=== PATIENT | female | born 1960 | race Caucasian/White ===

== ENCOUNTER 2016-12-19 15:16 | Inpatient (IN) | payer OTHER ==
[~2016-12-19] VITALS: Ht 157.5 cm; Wt 74.8 kg
[2016-12-19] MEDS ORDERED: SODIUM CHLORIDE 0.9% 1000ML 1,000 ML IV STA (15:34)
--- NOTE | 2016-12-19 15:39 | EMERGENCY ROOM VISIT NOTE ---
History First contact with patient: 15:25 Chief Complaint: RECTAL BLEEDING Stated Complaint: RECTAL BLEEDING Nursing Triage Summary: pt states she had a colonoscopy tuesday and c/o bloody stools and nausea today. History of Present Illness The patient is a 56 year old female who presents to the Emergency Room via private vehicle with complaints of "rectal bleeding". The patient states that she had a colonoscopy performed on Tuesday, at [facility] by Dr. Rivera. She states that this was an uneventful procedure, and felt well after. She states that she is held bowel movement since the event, with only minimal amount of blood. When she woke this morning, she had a bowel movement with bright red blood, but was liquid in nature. She denies any pain. She states since that time she's had 6 total bowel movements all of which have been prescribed blood. She also notes that around 1 PM she became nauseous. She furnishes paperwork which states that she had a 20 mm polyp, 35 cm proximal to the anus that was resected with a hot snare. There was also a 4 mm polyp, at the hepatic flexure which was resected with a cold snare. Both were sent for further evaluation. She denies any pain. She denies any rectal pain. Review of Systems A complete 10-point Review of Systems was discussed with the patient, with pertinent positives and negatives listed in the History of Present Illness. All remaining Review of Systems questions can be considered negative unless otherwise specified. Past Medical/Surgical History Medical Problems: (1) Rectal bleeding Polyps, colonoscopy Family History No pertinent. Social History Smoking Status: Current Every Day Smoker Patient lives locally with family. Current/Historical Medications Scheduled Ascorbic Acid (Vitamin C), 1 TAB PO QAM Bupropion (Wellbutrin-Xl), 300 MG PO QAM Fexofenadine-Pseudoephedrine (Lucia-D 12 Hour Allergy), 1 TAB PO QAM Physical Exam Vital Signs Date Time Temp Pulse Resp B/P (MAP) Pulse Ox O2 Delivery O2 Flow Rate FiO2 12/19/16 18:40 73 18 117/58 12/19/16 16:48 80 18 118/69 12/19/16 16:10 91 12/19/16 15:52 94 Room Air 12/19/16 15:21 36.5 98 18 106/66 93 Room Air Physical Exam VITAL SIGNS - Vital signs and nursing notes were reviewed. Patient is afebrile , normotensive, non-tachycardic and is saturating on room air 92%. GENERAL -56-year-old female appearing her stated age who is in no acute distress. Communicates well with provider and answers questions appropriately. SKIN - Without rashes. No petechial rash. HEAD - NC/AT. LUNGS - Chest wall symmetric without accessory muscle use, intercostals retractions, or central cyanosis. Normal vesicular breath sounds CTA B/L. No wheezes, rales, or rhonchi appreciated. CARDIAC - RRR with S1/S2. No murmur, rubs, or gallops appreciated. ABDOMEN - Abdominal contour without pulsations or visible masses. BS normoactive all four quadrants. No tenderness, palpable masses, hepatosplenomegaly, or ascites noted. Medical Decision & Procedures ER Provider Diagnostic Interpretation: CHEST ONE VIEW PORTABLE CLINICAL HISTORY: Colonoscopy Tuesday, bright red blood. Pain COMPARISON STUDY: No previous studies for comparison. FINDINGS: The bones soft tissues and hemidiaphragms are normal. The cardiomediastinal silhouette is normal. The lungs are clear. The pulmonary vasculature is normal. IMPRESSION: Negative chest. The above report was generated using voice recognition software. It may contain grammatical, syntax or spelling errors. Electronically signed by: Varghese Barnett M.D. 12/19/2016 3:53 PM Dictated Date/Time: 12/19/2016 3:53 PM ABD/PELVIS IV AND ORAL CONT CT DOSE: 355.41 mGy.cm HISTORY: Pain Colonoscopy on Tuesday, rectal bleeding. TECHNIQUE: Multiaxial CT images of the abdomen and pelvis were performed following the use of intravenous and oral contrast. A dose lowering technique was utilized adhering to the principles of ALARA. COMPARISON STUDY: None. FINDINGS: Lung bases are considered clear. Mild fatty replacement of the liver. Several small gallstones within the gallbladder lumen. Pancreas is unremarkable. Mild cortical scarring of the kidneys. Several small subcentimeter renal cortical cysts. Mild hyperplastic change of the adrenals. Nonobstructive bowel pattern. Normal appendix. No evidence for free air or pneumatosis. Bladder is midline. Probable calcifications of a fibroid uterus. IMPRESSION: 1. Several small gallstones. 2. Several small renal cysts. 3. Fibroid uterus. 4. Nonobstructive unremarkable bowel pattern. The above report was generated using voice recognition software. It may contain grammatical, syntax or spelling errors. Electronically signed by: Varghese Barnett M.D. 12/19/2016 6:21 PM Dictated Date/Time: 12/19/2016 6:19 PM Laboratory Results 12/19/16 15:50 Red Blood Count 4.62, Mean Corpuscular Volume 93.7, Mean Corpuscular Hemoglobin 31.0, Mean Corpuscular Hemoglobin Concent 33.0, Mean Platelet Volume 11.5, Neutrophils (%) (Auto) 88.3, Lymphocytes (%) (Auto) 5.5, Monocytes (%) (Auto) 5.6, Eosinophils (%) (Auto) 0.1, Basophils (%) (Auto) 0.2, Neutrophils # (Auto) 15.02, Lymphocytes # (Auto) 0.93, Monocytes # (Auto) 0.96, Eosinophils # (Auto) 0.02, Basophils # (Auto) 0.04 12/19/16 15:50 Test 12/19/16 15:50 White Blood Count 17.02 K/uL (4.8-10.8) Red Blood Count 4.62 M/uL (4.2-5.4) Hemoglobin 14.3 g/dL (12.0-16.0) Hematocrit 43.3 % (37-47) Mean Corpuscular Volume 93.7 fL (80-100) Mean Corpuscular Hemoglobin 31.0 pg (25-34) Mean Corpuscular Hemoglobin Concent 33.0 g/dl (32-36) Platelet Count 336 K/uL (130-400) Mean Platelet Volume 11.5 fL (7.4-10.4) Neutrophils (%) (Auto) 88.3 % Lymphocytes (%) (Auto) 5.5 % Monocytes (%) (Auto) 5.6 % Eosinophils (%) (Auto) 0.1 % Basophils (%) (Auto) 0.2 % Neutrophils # (Auto) 15.02 K/uL (1.4-6.5) Lymphocytes # (Auto) 0.93 K/uL (1.2-3.4) Monocytes # (Auto) 0.96 K/uL (0.11-0.59) Eosinophils # (Auto) 0.02 K/uL (0-0.5) Basophils # (Auto) 0.04 K/uL (0-0.2) RDW Standard Deviation 46.9 fL (36.4-46.3) RDW Coefficient of Variation 13.7 % (11.5-14.5) Immature Granulocyte % (Auto) 0.3 % Immature Granulocyte # (Auto) 0.05 K/uL (0.00-0.02) Prothrombin Time 10.9 SECONDS (9.0-12.0) Prothromb Time International Ratio 1.0 (0.9-1.1) Activated Partial Thromboplast Time 27.3 SECONDS (21.0-31.0) Partial Thromboplastin Ratio 1.1 Anion Gap 10.0 mmol/L (3-11) Est Creatinine Clear Calc Drug Dose 57.7 ml/min Estimated GFR () 73.5 Estimated GFR (Non- 63.4 BUN/Creatinine Ratio 14.0 (10-20) Calcium Level 9.6 mg/dl (8.5-10.1) Magnesium Level 1.7 mg/dl (1.8-2.4) Total Bilirubin 0.6 mg/dl (0.2-1) Aspartate Amino Transf (AST/SGOT) 17 U/L (15-37) Alanine Aminotransferase (ALT/SGPT) 17 U/L (12-78) Alkaline Phosphatase 64 U/L (45-117) Total Protein 7.1 gm/dl (6.4-8.2) Albumin 3.3 gm/dl (3.4-5.0) Globulin 3.8 gm/dl (2.5-4.0) Albumin/Globulin Ratio 0.9 (0.9-2) Medications Administered Medications (Trade) Dose Ordered Sig/Karo Route Start Time Stop Time Status Last Admin Dose Admin Sodium Chloride 1,000 ml @ 999 mls/hr Q1H1M STAT IV 12/19/16 15:34 12/19/16 16:34 DC 12/19/16 15:54 999 MLS/HR Nicotine (Nicoderm Cq 14MG Patch) 1 patch 2007 ONCE TD 12/19/16 20:08 12/19/16 20:23 DC 12/19/16 21:05 1 PATCH Medical Decision Patient was seen and evaluated as above. After obtaining a thorough history and physical examination, IV access was initiated, and the above workup was performed. Patient presents was today with painless rectal bleeding with bowel movements. She had a colonoscopy on Tuesday. CBC reveals is a ptosis at 17.02. Hemoglobin at 14.3. Coag unremarkable. CMP unremarkable for emergent process. Magnesium slightly low at 1.7. Benefits versus risk of obtaining a CT scan was discussed, and the decision was made to scan. No evidence of perforation. Results as above. I discussed the case with my attending, and subsequently the on-call GI doctor, Dr. Bates. He stated that he had spoken with the [facility] regarding the case, and recommended MiraLAX bowel prep, admission for potential colonoscopy tomorrow. I do believe this is reasonable. Patient was educated upon findings. I did discuss the case with [facility], Dr. Sharma. Please refer to further documentation regarding the patient's stay. In evaluation treatment this patient the following differential diagnoses were entertained: Hemorrhaging resection site, abscess, perforation, among others. Impression Primary Impression: Rectal bleeding Departure Information Dispostion Admitted as an inpatient Condition FAIR Referrals Francisco Osorio M.D. (PCP) Patient Instructions My [facility]
--- NOTE | 2016-12-19 15:54 | DIAGNOSTIC IMAGING REPORT ---
CHEST ONE VIEW PORTABLE CLINICAL HISTORY: Colonoscopy Tuesday, bright red blood. Pain COMPARISON STUDY: No previous studies for comparison. FINDINGS: The bones soft tissues and hemidiaphragms are normal. The cardiomediastinal silhouette is normal. The lungs are clear. The pulmonary vasculature is normal. IMPRESSION: Negative chest. The above report was generated using voice recognition software. It may contain grammatical, syntax or spelling errors. Electronically signed by: Varghese Barnett M.D. 12/19/2016 3:53 PM Dictated Date/Time: 12/19/2016 3:53 PM
[2016-12-19 16:07] LABS: BASO % 0.2 %; BASO ABS # 0.04 K/uL (0-0.2); COMPLETE YES; EOS % 0.1 %; HEMATOCRIT 43.3 % (37-47); IG% 0.3 %; LYMPH % 5.5 %; LYMPH ABS # 0.93 K/uL (1.2-3.4); MEAN CELL VOLUME 93.7 fL (80-100); MEAN PLATELET VOLUME 11.5 fL (7.4-10.4); MONO % 5.6 %; NEUT % 88.3 %; PLATELET COUNT 336 K/uL (130-400); RED BLOOD COUNT 4.62 M/uL (4.2-5.4); WHITE BLOOD COUNT 17.02 K/uL (4.8-10.8)
[2016-12-19] MEDS ORDERED: BUPRTAB51 PO (16:11)
[2016-12-19] MEDS ORDERED: FEXO5TAB2 PO (16:11)
[2016-12-19] MEDS ORDERED: ASCO10003 PO (16:13)
[2016-12-19 16:18] LABS: PARTIAL THROMBOPLASTIN RATIO 1.1; PROTHROMBIN TIME (PATIENT) 10.9 SECONDS (9.0-12.0)
[2016-12-19 16:23] LABS: CALCIUM 9.6 mg/dl (8.5-10.1); MAGNESIUM 1.7 mg/dl (1.8-2.4); POTASSIUM 4.1 mmol/L (3.5-5.1)
[2016-12-19 16:26] LABS: ALB/GLOB RATIO 0.9 (0.9-2)
[2016-12-19] MEDS ORDERED: OPTIRAY 320 IV PRN (18:15)
--- NOTE | 2016-12-19 18:23 | DIAGNOSTIC IMAGING REPORT ---
ABD/PELVIS IV AND ORAL CONT CT DOSE: 355.41 mGy.cm HISTORY: Pain Colonoscopy on Tuesday, rectal bleeding. TECHNIQUE: Multiaxial CT images of the abdomen and pelvis were performed following the use of intravenous and oral contrast. A dose lowering technique was utilized adhering to the principles of ALARA. COMPARISON STUDY: None. FINDINGS: Lung bases are considered clear. Mild fatty replacement of the liver. Several small gallstones within the gallbladder lumen. Pancreas is unremarkable. Mild cortical scarring of the kidneys. Several small subcentimeter renal cortical cysts. Mild hyperplastic change of the adrenals. Nonobstructive bowel pattern. Normal appendix. No evidence for free air or pneumatosis. Bladder is midline. Probable calcifications of a fibroid uterus. IMPRESSION: 1. Several small gallstones. 2. Several small renal cysts. 3. Fibroid uterus. 4. Nonobstructive unremarkable bowel pattern. The above report was generated using voice recognition software. It may contain grammatical, syntax or spelling errors. Electronically signed by: Varghese Barnett M.D. 12/19/2016 6:21 PM Dictated Date/Time: 12/19/2016 6:19 PM
[2016-12-19] MEDS ORDERED: NICOTINE 14 MG/24 HR TDSY TD ONE (20:08)
[2016-12-19] MEDS ORDERED: IV FLUIDS COMPLETED PRN (20:30)
--- NOTE | 2016-12-19 20:30 | History and Physical ---
History & Physical Date & Time of Service: Dec 19, 2016 at 20:20 Chief Complaint: Rectal Bleeding Primary Care Physician: Francisco Osorio M.D. History of Present Illness Source: patient, family 56 year old female with history of Smoking, Asthma, Alcoholism, Depression presenting with rectal bleeding. Follows with Dr. Osorio for PCP and Dr. Rivera for GI. Patient underwent screening colonoscopy last Tuesday, with 2 polyps removed. She was doing fine until this morning when she started to notice blood mixed with her stools- fills the bowl each time. No pain with BM. Around 9 times today. No abdominal pain, has occasional nausea. No chest pain, dyspnea, palpitations, dizziness. She called GI and was advised by Dr. Bates to proceed to the ER, and a colonoscopy will be done in AM. Patient arrived at the ER with stable VS. Hg 14. CT abdomen: (+) gallstones, fibroid uterus. On exam, patient seen resting in bed, comfortable. States she feels ok overall. Had 2 episodes of hematochezia. No other active symptoms. Family History Blood Disorder- Mother; Cancer- Father; Heart Disease- Mother Social History Smoking Status: Current Every Day Smoker Smokeless Tobacco Use: No Alcohol Use: none Drug Use: none Marital Status: Housing status: lives with family Multi-Drug Resistant Organisms History of MDRO: No Allergies Coded Allergies: Penicillins (Verified Allergy, Unknown, OTHER, 12/19/16) UNKNOWN Home Medications Scheduled Ascorbic Acid (Vitamin C), 1 TAB PO QAM Bupropion (Wellbutrin-Xl), 300 MG PO QAM Fexofenadine-Pseudoephedrine (Lucia-D 12 Hour Allergy), 1 TAB PO QAM Review of Systems Constitutional- no fever; no weight loss Eyes- no acute visual changes ENT- no sinus drainage; no pharyngitis Pulmonary- no cough, no wheezing, no shortness of breath Cardiac- no chest pain, no palpitations, no orthopnea, no dependent edema GI- (+) as noted above - no dysuria, no hematuria Musculoskeletal- no arthralgias, no myalgias Derm- no rashes, no new skin lesions, no changing skin lesions Hematologic- no unusual bruising, no unusual bleeding Lymphatics- no adenopathy Endocrine- no polyuria or polydipsia; no heat or cold intolerance Neuro- no headaches, no focal neurologic symptoms Psych- no anxiety, no depression Physical Exam Vital Signs Date Time Temp Pulse Resp B/P (MAP) Pulse Ox O2 Delivery O2 Flow Rate FiO2 12/19/16 18:40 73 18 117/58 12/19/16 16:48 80 18 118/69 12/19/16 16:10 91 12/19/16 15:52 94 Room Air 12/19/16 15:21 36.5 98 18 106/66 93 Room Air General Appearance: WD/WN, no apparent distress Head: normocephalic, atraumatic Eyes: normal inspection, PERRL, sclerae normal ENT: normal ENT inspection, hearing grossly normal, pharynx normal Neck: supple, no adenopathy, thyroid normal, no JVD, no carotid bruits Respiratory/Chest: chest non-tender, lungs clear, normal breath sounds, no respiratory distress, no accessory muscle use Cardiovascular: regular rate, rhythm, no edema, no JVD, no murmur Abdomen/GI: normal bowel sounds, non tender, soft Back: normal inspection, no CVA tenderness Extremities/Musculoskelatal: normal inspection, no calf tenderness, no pedal edema, normal range of motion 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, no motor/sensory deficits, alert, normal mood/affect, oriented x 3 Skin: normal color, warm/dry, no rash Lymphatic: no adenopathy Diagnostics Laboratory Results Results Past 24 Hours Test 12/19/16 15:50 Range/Units White Blood Count 17.02 4.8-10.8 K/uL Red Blood Count 4.62 4.2-5.4 M/uL Hemoglobin 14.3 12.0-16.0 g/dL Hematocrit 43.3 37-47 % Mean Corpuscular Volume 93.7 80-100 fL Mean Corpuscular Hemoglobin 31.0 25-34 pg Mean Corpuscular Hemoglobin Concent 33.0 32-36 g/dl Platelet Count 336 130-400 K/uL Mean Platelet Volume 11.5 7.4-10.4 fL Neutrophils (%) (Auto) 88.3 % Lymphocytes (%) (Auto) 5.5 % Monocytes (%) (Auto) 5.6 % Eosinophils (%) (Auto) 0.1 % Basophils (%) (Auto) 0.2 % Neutrophils # (Auto) 15.02 1.4-6.5 K/uL Lymphocytes # (Auto) 0.93 1.2-3.4 K/uL Monocytes # (Auto) 0.96 0.11-0.59 K/uL Eosinophils # (Auto) 0.02 0-0.5 K/uL Basophils # (Auto) 0.04 0-0.2 K/uL RDW Standard Deviation 46.9 36.4-46.3 fL RDW Coefficient of Variation 13.7 11.5-14.5 % Immature Granulocyte % (Auto) 0.3 % Immature Granulocyte # (Auto) 0.05 0.00-0.02 K/uL Prothrombin Time 10.9 9.0-12.0 SECONDS Prothromb Time International Ratio 1.0 0.9-1.1 Activated Partial Thromboplast Time 27.3 21.0-31.0 SECONDS Partial Thromboplastin Ratio 1.1 Sodium Level 137 136-145 mmol/L Potassium Level 4.1 3.5-5.1 mmol/L Chloride Level 100 98-107 mmol/L Carbon Dioxide Level 27 21-32 mmol/L Anion Gap 10.0 3-11 mmol/L Blood Urea Nitrogen 14 7-18 mg/dl Creatinine 1.00 0.60-1.20 mg/dl Est Creatinine Clear Calc Drug Dose 57.7 ml/min Estimated GFR () 73.5 Estimated GFR (Non- 63.4 BUN/Creatinine Ratio 14.0 10-20 Random Glucose 145 70-99 mg/dl Calcium Level 9.6 8.5-10.1 mg/dl Magnesium Level 1.7 1.8-2.4 mg/dl Total Bilirubin 0.6 0.2-1 mg/dl Aspartate Amino Transf (AST/SGOT) 17 15-37 U/L Alanine Aminotransferase (ALT/SGPT) 17 12-78 U/L Alkaline Phosphatase 64 45-117 U/L Total Protein 7.1 6.4-8.2 gm/dl Albumin 3.3 3.4-5.0 gm/dl Globulin 3.8 2.5-4.0 gm/dl Albumin/Globulin Ratio 0.9 0.9-2 Diagnostic Radiology ABD/PELVIS IV AND ORAL CONT CT DOSE: 355.41 mGy.cm HISTORY: Pain Colonoscopy on Tuesday, rectal bleeding. TECHNIQUE: Multiaxial CT images of the abdomen and pelvis were performed following the use of intravenous and oral contrast. A dose lowering technique was utilized adhering to the principles of ALARA. COMPARISON STUDY: None. FINDINGS: Lung bases are considered clear. Mild fatty replacement of the liver. Several small gallstones within the gallbladder lumen. Pancreas is unremarkable. Mild cortical scarring of the kidneys. Several small subcentimeter renal cortical cysts. Mild hyperplastic change of the adrenals. Nonobstructive bowel pattern. Normal appendix. No evidence for free air or pneumatosis. Bladder is midline. Probable calcifications of a fibroid uterus. IMPRESSION: 1. Several small gallstones. 2. Several small renal cysts. 3. Fibroid uterus. 4. Nonobstructive unremarkable bowel pattern. EKG sinus rhythm, normal HR, no signs of ischemia/infarct Impression Assessment and Plan 56 year old female with history of Smoking, Asthma, Alcoholism, Depression presenting with rectal bleeding. RECTAL BLEEDING RECENT COLONOSCOPY, WITH POLYPECTOMY 12/17/16 - discussed with Dr. Bates - plan for colonoscopy in AM - NPO post midnight Miralax prep IV fluids - Hg 14 H&H q6h SMOKER - Nicotine patch ALCOHOLISM - last drink 2 months ago DEPRESSION - Welbutrin ASTHMA - stable DVT prophylaxis - SCDs Full Code Disposition pending anticipate d/c home when medically stable VTE Prophylaxis VTE Risk Assessment Done? Y/N: Yes Risk Level: Low Given or contraindicated: SCD's
[2016-12-19] MEDS ORDERED: ONDANSETRON INJ 2 MG/ML 2 ML VIAL IV PRN (20:45)
[2016-12-19] MEDS ORDERED: ACETAMINOPHEN 325 MG TAB PO PRN (20:45)
[2016-12-19 21:11] VITALS: BP 110/63; PULSE 84; TEMP 36.8; O2SAT 94; Ht 157.5 cm; Wt 74.8 kg
[2016-12-19 21:12] LABS: HEMATOCRIT 36.2 % (37-47)
[2016-12-19] MEDS: D5W AND NSS 1,000 ML IV SCH (21:30)
[2016-12-19] MEDS: POLYETHYLENE (MIRALAX) 17 GM PACK PO SCH ×2 (21:47→23:56)
[2016-12-19 23:46] VITALS: BP 103/67; PULSE 76; TEMP 36.7; O2SAT 94
[2016-12-20] VITALS (18 sets, daily range): BP systolic 62–102; BP diastolic 42–70; PULSE 56–97; TEMP 36.4–37.1; O2SAT 92–98
[2016-12-20] MEDS ORDERED: SODIUM CHLORIDE 0.9% 1000ML 1,000 ML IV SCH ×2 (03:00→08:30)
[2016-12-20 03:37] LABS: HEMATOCRIT 27.7 % (37-47)
[2016-12-20 06:34] LABS: HEMATOCRIT 24.2 % (37-47); MEAN CELL VOLUME 93.8 fL (80-100); MEAN CORPUSCULAR HEMOGLOBIN 29.8 pg (25-34); MEAN CORPUSCULAR HGB CONC 31.8 g/dl (32-36); MEAN PLATELET VOLUME 11.4 fL (7.4-10.4); PLATELET COUNT 217 K/uL (130-400); RED BLOOD COUNT 2.58 M/uL (4.2-5.4); WHITE BLOOD COUNT 12.02 K/uL (4.8-10.8)
[2016-12-20 07:04] LABS: BUN/CREATININE RATIO 20.9 (10-20); CREATININE 0.5 mg/dl (0.60-1.20)
[2016-12-20 07:19] LABS: CALCIUM 8.1 mg/dl (8.5-10.1)
[2016-12-20] MEDS: D5W AND NSS 1,000 ML IV SCH (08:45)
[2016-12-20] MEDS: BuPROPion XL 150 MG TABCR PO SCH (09:00)
--- NOTE | 2016-12-20 09:04 | Progress Note ---
Medicine Progress Note Date & Time of Visit: Dec 20, 2016 at 09:04. Subjective events overnight noted patient seen this morning sleeping but easily rousable not in distress states she feels fine overall denies active dizziness, dyspnea, chest pain no active rectal bleeding on my exam Objective Last 8 Hrs Date Time Temp Pulse Resp B/P (MAP) Pulse Ox O2 Delivery O2 Flow Rate FiO2 12/20/16 08:03 36.4 64 16 84/51 (62) 98 Nasal Cannula 3.0 12/20/16 05:01 61 100/58 (72) 12/20/16 04:31 36.4 56 17 88/54 (65) 96 Nasal Cannula 2.0 12/20/16 04:00 Room Air 12/20/16 03:00 62/44 (50) 12/20/16 01:30 97 18 100/70 (80) 95 Room Air Physical Exam: General- oriented x 3, not in distress, speaks in sentences with no effort Eyes- EOMI, anicteric Neck- supple, no JVD Lungs- clear breath sounds bilaterally, no rales/wheezes Heart- regular rhythm; no murmur, normal rate Abdomen- normal bowel sounds, soft, nontender, non distended Extremities- no pretibial edema, no calf tenderness; peripheral pulses intact Neuro- alert, oriented x 3; no gross focal deficits Skin- warm & dry Laboratory Results: Last 24 Hours Test 12/19/16 15:50 12/19/16 21:06 12/20/16 02:58 12/20/16 03:00 White Blood Count 17.02 K/uL Red Blood Count 4.62 M/uL Hemoglobin 14.3 g/dL 12.0 g/dL 8.5 g/dL Hematocrit 43.3 % 36.2 % 27.7 % Mean Corpuscular Volume 93.7 fL Mean Corpuscular Hemoglobin 31.0 pg Mean Corpuscular Hemoglobin Concent 33.0 g/dl Platelet Count 336 K/uL Mean Platelet Volume 11.5 fL Neutrophils (%) (Auto) 88.3 % Lymphocytes (%) (Auto) 5.5 % Monocytes (%) (Auto) 5.6 % Eosinophils (%) (Auto) 0.1 % Basophils (%) (Auto) 0.2 % Neutrophils # (Auto) 15.02 K/uL Lymphocytes # (Auto) 0.93 K/uL Monocytes # (Auto) 0.96 K/uL Eosinophils # (Auto) 0.02 K/uL Basophils # (Auto) 0.04 K/uL RDW Standard Deviation 46.9 fL RDW Coefficient of Variation 13.7 % Immature Granulocyte % (Auto) 0.3 % Immature Granulocyte # (Auto) 0.05 K/uL Prothrombin Time 10.9 SECONDS Prothromb Time International Ratio 1.0 Activated Partial Thromboplast Time 27.3 SECONDS Partial Thromboplastin Ratio 1.1 Sodium Level 137 mmol/L Potassium Level 4.1 mmol/L Chloride Level 100 mmol/L Carbon Dioxide Level 27 mmol/L Anion Gap 10.0 mmol/L Blood Urea Nitrogen 14 mg/dl Creatinine 1.00 mg/dl Est Creatinine Clear Calc Drug Dose 57.7 ml/min Estimated GFR () 73.5 Estimated GFR (Non- 63.4 BUN/Creatinine Ratio 14.0 Random Glucose 145 mg/dl Calcium Level 9.6 mg/dl Magnesium Level 1.7 mg/dl Total Bilirubin 0.6 mg/dl Aspartate Amino Transf (AST/SGOT) 17 U/L Alanine Aminotransferase (ALT/SGPT) 17 U/L Alkaline Phosphatase 64 U/L Total Protein 7.1 gm/dl Albumin 3.3 gm/dl Globulin 3.8 gm/dl Albumin/Globulin Ratio 0.9 Bedside Glucose 248 mg/dl Test 12/20/16 06:11 White Blood Count 12.02 K/uL Red Blood Count 2.58 M/uL Hemoglobin 7.7 g/dL Hematocrit 24.2 % Mean Corpuscular Volume 93.8 fL Mean Corpuscular Hemoglobin 29.8 pg Mean Corpuscular Hemoglobin Concent 31.8 g/dl RDW Standard Deviation 47.6 fL RDW Coefficient of Variation 13.9 % Platelet Count 217 K/uL Mean Platelet Volume 11.4 fL Sodium Level 142 mmol/L Potassium Level 4.0 mmol/L Chloride Level 113 mmol/L Carbon Dioxide Level 23 mmol/L Anion Gap 6.0 mmol/L Blood Urea Nitrogen 10 mg/dl Creatinine 0.50 mg/dl Est Creatinine Clear Calc Drug Dose 113.5 ml/min Estimated GFR () 126.3 Estimated GFR (Non- 109.0 BUN/Creatinine Ratio 20.9 Random Glucose 139 mg/dl Calcium Level 8.1 mg/dl Assessment & Plan 56 year old female with history of Smoking, Asthma, Alcoholism, Depression presenting with rectal bleeding. RECTAL BLEEDING RECENT COLONOSCOPY, WITH POLYPECTOMY 12/17/16 - Hg dropped to 7.7 had a syncopal episode this morning - 1 unit of PRBC ordered Hg increased to 8.4 - s/p Colonoscopy Impression: - Blood in the entire examined colon. - Post-polypectomy bleeding from the descending colon. Injected. Clips (MR conditional) were placed. Ligated. Treated with bipolar cautery. Tattooed. - No specimens collected. Recommendation: - [facility]. - Clear liquid diet today. - If rebleeding occurs would refer for angiography. - No NSAIDS for 1 week -- discussed with Dr. Bates will monitor H&H if patient has another bleeding episode, will need to transfer to [facility] for CT angiography SMOKER - Nicotine patch ALCOHOLISM - last drink 2 months ago DEPRESSION - Welbutrin ASTHMA - stable DVT prophylaxis - SCDs Full Code Disposition pending anticipate d/c home when medically stable Current Inpatient Medications: Current Inpatient Medications Medications (Trade) Dose Ordered Sig/Karo Route Start Time Stop Time Status Last Admin Dose Admin Ioversol (Optiray 320) 116 ml UD PRN IV 12/19/16 18:15 12/23/16 18:14 Dextrose/Sodium Chloride 1,000 ml @ 80 mls/hr [id number] IV 12/19/16 20:15 01/18/17 20:14 12/19/16 21:30 80 MLS/HR Bupropion HCl (Wellbutrin-Xl Tab) 150 mg QAM PO 12/20/16 09:00 01/19/17 08:59 Nicotine (Nicoderm Cq 14MG Patch) 1 patch QAM TD 12/20/16 09:00 01/19/17 08:59 Miscellaneous (Remove Nicoderm Patch) 1 ea HS N/A 12/19/16 21:00 01/18/17 20:59 Miscellaneous (Iv Fluids Completed) 1 ea PRN PRN N/A 12/19/16 20:30 12/19/17 20:29 Acetaminophen (Tylenol Tab) 650 mg Q4H PRN PO 12/19/16 20:45 01/18/17 20:44 Ondansetron HCl (Zofran Inj) 4 mg Q6H PRN IV 12/19/16 20:45 01/18/17 20:44 Sodium Chloride 1,000 ml @ 999 mls/hr Q1H1M IV 12/20/16 08:30 12/20/16 09:30 12/20/16 08:55 999 MLS/HR
--- NOTE | 2016-12-20 10:13 | Gastrointestinal Consultation ---
Gastrointestinal Consultation Date of Consultation: Dec 20, 2016 Attending Physician: Dr. Sharma Consulting Physician: Dr. Madhu Bates Reason for Consultation: Rectal bleeding History of Present Illness Patient is a 56 year old female with PMHx of tobacco use and depression who is s /p her first screening colonoscopy 3 days ago on 12/[address] Rivera where she had 2 polyps removed, one being 20mm that was 35cm from anus, removed with hot snare (path pending), pt did well until yesterday morning and noted multiple bright red bloody BM's associated with weakness and dizziness. She notified GI electronic security technician who recommended coming to ER, hgb was 14 on arrival, she continued to have bloody BM's overnight, miralax prep ordered for planned repeat colonoscopy today. Pt had syncopal event overnight in the bathroom associated with small amount of vomiting (vomited her prep, no hematemesis), hgb has dropped to 7.7, she was hypotensive with BP of 84/51 which has now improved to 102/62 after 1L of IVF, one unit PRBCs has been ordered and is currently ready to be transfused. Bun/Cr. ratio normal. At time of my consult, pt setting up in bed, appears weak but in NAD. She denies abdominal pain. Reports no other GI complaints, was able to complete bowel prep and is anticipating repeat colonoscopy later this morning. Past Medical/Surgical History Tobacco use Asthma Depression Past Medical History: Tobacco use asthma depression Past Surgical History: colonoscopy 12/17/16 Social History Smoking Status: Current Every Day Smoker Drug Use: none Marital Status: Allergies Coded Allergies: Penicillins (Verified Allergy, Unknown, OTHER, 12/19/16) UNKNOWN Current Medications Home Meds and Scripts Medications Dose Route/Sig Max Daily Dose Days Date Category Vitamin C (Ascorbic Acid) 1,000 Mg Tab 1 Tab PO QAM 12/19/16 Reported Lucia-D 12 Hour Allergy (Fexofenadine-Pseudoephedrine) 1 Tab Tab 1 Tab PO QAM 12/19/16 Reported Wellbutrin-Xl (Bupropion HCl) 300 Mg Tabcr 300 Mg PO QAM 12/19/16 Reported Review of Systems Constitutional: + see HPI, + weakness, + fatigue, No fever, No chills Eyes: No problem reported ENT: No problem reported Respiratory: + problem reported (hx of tobacco use) Cardiac: No chest pain Abdomen: + see HPI, + nausea, + GI bleeding Musculoskeletal: No problem reported Female : No problem reported Neuro: + weakness (syncopal episode per HPI) Psych: + problem reported (hx of depression controlled on wellbutrin) Heme: + see HPI Endo: No problem reported Skin: No problem reported Physical Exam Date Time Temp Pulse Resp B/P (MAP) Pulse Ox O2 Delivery O2 Flow Rate FiO2 12/20/16 08:03 36.4 64 16 84/51 (62) 98 Nasal Cannula 3.0 12/20/16 05:01 61 100/58 (72) 12/20/16 04:31 36.4 56 17 88/54 (65) 96 Nasal Cannula 2.0 12/20/16 04:00 Room Air 12/20/16 03:00 62/44 (50) 12/20/16 01:30 97 18 100/70 (80) 95 Room Air 12/20/16 00:01 Room Air 12/19/16 23:46 36.7 76 20 103/67 (79) 94 Room Air 12/19/16 21:11 36.8 84 18 110/63 94 Room Air 12/19/16 21:00 72 18 111/60 92 Room Air 12/19/16 18:40 73 18 117/58 12/19/16 16:48 80 18 118/69 12/19/16 16:10 91 12/19/16 15:52 94 Room Air 12/19/16 15:21 36.5 98 18 106/66 93 Room Air General Appearance: WD/WN, + pertinent finding (appears weak but NAD) Eyes: normal inspection, PERRL ENT: normal ENT inspection Neck: supple Respiratory/Chest: no respiratory distress, no accessory muscle use, + wheezing (mild scattered wheeze audible, lungs otherwise clear) Cardiovascular: regular rate, rhythm Abdomen: normal bowel sounds, non tender, soft Extremities: normal range of motion, non-tender, no pedal edema Neurologic/Psych: alert, normal mood/affect, oriented x 3 Skin: normal color Laboratory Results Last 24 Hours Test 12/19/16 15:50 12/19/16 21:06 12/20/16 02:58 12/20/16 03:00 White Blood Count 17.02 K/uL Red Blood Count 4.62 M/uL Hemoglobin 14.3 g/dL 12.0 g/dL 8.5 g/dL Hematocrit 43.3 % 36.2 % 27.7 % Mean Corpuscular Volume 93.7 fL Mean Corpuscular Hemoglobin 31.0 pg Mean Corpuscular Hemoglobin Concent 33.0 g/dl Platelet Count 336 K/uL Mean Platelet Volume 11.5 fL Neutrophils (%) (Auto) 88.3 % Lymphocytes (%) (Auto) 5.5 % Monocytes (%) (Auto) 5.6 % Eosinophils (%) (Auto) 0.1 % Basophils (%) (Auto) 0.2 % Neutrophils # (Auto) 15.02 K/uL Lymphocytes # (Auto) 0.93 K/uL Monocytes # (Auto) 0.96 K/uL Eosinophils # (Auto) 0.02 K/uL Basophils # (Auto) 0.04 K/uL RDW Standard Deviation 46.9 fL RDW Coefficient of Variation 13.7 % Immature Granulocyte % (Auto) 0.3 % Immature Granulocyte # (Auto) 0.05 K/uL Prothrombin Time 10.9 SECONDS Prothromb Time International Ratio 1.0 Activated Partial Thromboplast Time 27.3 SECONDS Partial Thromboplastin Ratio 1.1 Sodium Level 137 mmol/L Potassium Level 4.1 mmol/L Chloride Level 100 mmol/L Carbon Dioxide Level 27 mmol/L Anion Gap 10.0 mmol/L Blood Urea Nitrogen 14 mg/dl Creatinine 1.00 mg/dl Est Creatinine Clear Calc Drug Dose 57.7 ml/min Estimated GFR () 73.5 Estimated GFR (Non- 63.4 BUN/Creatinine Ratio 14.0 Random Glucose 145 mg/dl Calcium Level 9.6 mg/dl Magnesium Level 1.7 mg/dl Total Bilirubin 0.6 mg/dl Aspartate Amino Transf (AST/SGOT) 17 U/L Alanine Aminotransferase (ALT/SGPT) 17 U/L Alkaline Phosphatase 64 U/L Total Protein 7.1 gm/dl Albumin 3.3 gm/dl Globulin 3.8 gm/dl Albumin/Globulin Ratio 0.9 Bedside Glucose 248 mg/dl Test 12/20/16 06:11 White Blood Count 12.02 K/uL Red Blood Count 2.58 M/uL Hemoglobin 7.7 g/dL Hematocrit 24.2 % Mean Corpuscular Volume 93.8 fL Mean Corpuscular Hemoglobin 29.8 pg Mean Corpuscular Hemoglobin Concent 31.8 g/dl RDW Standard Deviation 47.6 fL RDW Coefficient of Variation 13.9 % Platelet Count 217 K/uL Mean Platelet Volume 11.4 fL Sodium Level 142 mmol/L Potassium Level 4.0 mmol/L Chloride Level 113 mmol/L Carbon Dioxide Level 23 mmol/L Anion Gap 6.0 mmol/L Blood Urea Nitrogen 10 mg/dl Creatinine 0.50 mg/dl Est Creatinine Clear Calc Drug Dose 113.5 ml/min Estimated GFR () 126.3 Estimated GFR (Non- 109.0 BUN/Creatinine Ratio 20.9 Random Glucose 139 mg/dl Calcium Level 8.1 mg/dl Impression Patient is a 56 year old female s/p colonoscopy 3 days ago with large polyp removed now with post polypectomy bleeding, anemia and syncopal event Plan BP improved post fluid bolus PRBCs ordered and currently getting ready to transfuse pt has completed colonoscopy prep keep NPO plan is for colonoscopy late morning today as long as she remains hemodynamically stable and BP is improved. additional GI recommendations to follow after colonoscopy I have seen and evaluated the patient. She presents with post-polypectomy bleeding. Physical examination: No obvious distress, blood pressure appears to be improved after recent transfusion Impression: Patient presenting with hematochezia most likely related to recent large polypectomy. We've discussed the risks of repeat colonoscopy to include bleeding, infection, perforation and pain
[2016-12-20 12:22] LABS: HEMATOCRIT 26.1 % (37-47)
[2016-12-20] MEDS ORDERED: ALBUT/IPRATROP 3MG/0.5MG NEB 3 ML VIAL INH ONE (13:00)
--- NOTE | 2016-12-20 14:17 | GI REPORT ---
Procedure Date: 12/20/2016 1:17 PM Procedure: Colonoscopy Indications: Hematochezia Medicines: Monitored Anesthesia Care Complications: No immediate complications. Estimated Blood Loss: Estimated blood loss was minimal. Procedure: Pre-Anesthesia Assessment: - Prior to the procedure, a History and Physical was performed, and patient medications, allergies and sensitivities were reviewed. The patient's tolerance of previous anesthesia was reviewed. - The risks and benefits of the procedure and the sedation options and risks were discussed with the patient. All questions were answered and informed consent was obtained. - Patient identification and proposed procedure were verified prior to the procedure by the physician, the nurse and the business records manager. The procedure was verified in the procedure room. - Pre-procedure physical examination revealed no contraindications to sedation. - ASA Grade Assessment: III - A patient with severe systemic disease. - After reviewing the risks and benefits, the patient was deemed in satisfactory condition to undergo the procedure. - The anesthesia plan was to use monitored anesthesia care (MAC). - Immediately prior to administration of medications, the patient was re-assessed for adequacy to receive sedatives. - The heart rate, respiratory rate, oxygen saturations, blood pressure, adequacy of pulmonary ventilation, and response to care were monitored throughout the procedure. - The physical status of the patient was re-assessed after the procedure. After I obtained informed consent, the scope was passed under direct vision. Throughout the procedure, the patient's blood pressure, pulse, and oxygen saturations were monitored continuously. The scope was introduced through the anus and advanced to the cecum, identified by appendiceal orifice and ileocecal valve. The colonoscopy was performed with moderate difficulty due to poor endoscopic visualization. Successful completion of the procedure was aided by lavage. The patient tolerated the procedure well. The quality of the bowel preparation was fair. Findings: The perianal and digital rectal examinations were normal. Pertinent negatives include normal sphincter tone. Clotted blood was found in the entire colon. A bleeding polyp stalk was found in the descending colon at a prior polypectomy site. The polyp stalk was enlongated and contained a very large diameter blood vessel (> 7 mm). The area was successfully injected with 2 mL of a 1:10,000 solution of epinephrine for hemostasis. To stop active bleeding, three hemostatic clips were successfully placed (MR conditional) at the base of the polyp stalk. As the vessel could still be visualized, one ligature was successfully placed. For additional hemostasis, two more hemostatic clips were successfully placed (MR conditional) on the back side of the polyp stalk. Coagulation for hemostasis using a 10 Fr multipolar silver probe at the visible vessel was successful. Area was tattooed with an injection of 2 mL of Spot (carbon black). Impression: - Blood in the entire examined colon. - Post-polypectomy bleeding from the descending colon. Injected. Clips (MR conditional) were placed. Ligated. Treated with bipolar cautery. Tattooed. - No specimens collected. Recommendation: - [facility]. - Clear liquid diet today. - If rebleeding occurs would refer for angiography. - No NSAIDS for 1 week Alonso Bates D.O. Alonso Bates, DO 12/20/2016 2:16:28 PM This report has been signed electronically. Note Initiated On: 12/20/2016 1:17 PM I attest to the content of the Intraoperative Record and orders documented therein, exceptions below
--- NOTE | 2016-12-20 14:39 | Anesthesiology Progress Note ---
Anesthesia Post Op Note Date & Time Dec 20, 2016 at 14:38 Vital Signs Pain Intensity: 4 Vital Signs Past 12 Hours Date Time Temp Pulse Resp B/P (MAP) Pulse Ox O2 Delivery O2 Flow Rate FiO2 12/20/16 14:24 62 22 107/60 (76) 94 Room Air 12/20/16 14:19 68 28 105/51 (69) 100 Room Air 12/20/16 13:11 59 14 93 Room Air 12/20/16 12:48 37 66 24 84/47 (59) 97 Room Air 12/20/16 12:09 36.9 62 16 99/57 (71) 98 12/20/16 12:00 36.8 63 18 96/60 95 12/20/16 12:00 Room Air 12/20/16 11:30 37.0 58 16 99/62 97 12/20/16 11:00 36.9 71 18 102/65 96 12/20/16 10:45 36.7 66 20 100/63 96 12/20/16 10:30 36.7 71 18 101/63 98 12/20/16 10:10 36.8 60 16 99/60 98 12/20/16 09:55 36.7 63 18 98/58 95 12/20/16 08:03 36.4 64 16 84/51 (62) 98 Nasal Cannula 3.0 12/20/16 08:00 Room Air 12/20/16 05:01 61 100/58 (72) 12/20/16 04:31 36.4 56 17 88/54 (65) 96 Nasal Cannula 2.0 12/20/16 04:00 Room Air 12/20/16 03:00 62/44 (50) Notes Mental Status: alert / awake / arousable, participated in evaluation Pt Amnestic to Procedure: Yes Nausea / Vomiting: adequately controlled Pain: adequately controlled Airway Patency, RR, SpO2: stable & adequate BP & HR: stable & adequate Hydration State: stable & adequate Anesthetic Complications: no major complications apparent
[2016-12-20] MEDS ORDERED: ETOMIDATE 2 MG/ML 20 ML VIAL IV ONE (14:40)
[2016-12-20] MEDS ORDERED: PROPOFOL IV EMULSION 10 MG/ML 20 ML VIAL IV ONE (14:40)
[2016-12-20] MEDS ORDERED: LIDOCAINE HCL 2% 2 ML VIAL (20MG/ML) ONE (14:40)
[2016-12-20] MEDS ORDERED: TRAMADOL HCL 50 MG TAB PO PRN (16:00)
[2016-12-20] MEDS ORDERED: ACETAMINOPHEN IV 650 MG in EMPTY BAG 0 ML IV PRN (16:00)
[2016-12-20] MEDS: NICOTINE 14 MG/24 HR TDSY TD SCH (16:22)
[2016-12-20] MEDS ORDERED: IV FLUIDS COMPLETED PRN (18:15)
[2016-12-20 18:19] LABS: HEMATOCRIT 24.6 % (37-47)
[2016-12-21] VITALS (9 sets, daily range): BP systolic 92–124; BP diastolic 55–74; PULSE 66–82; TEMP 36.6–37.2; O2SAT 91–94
[2016-12-21] MEDS: D5W AND NSS 1,000 ML IV SCH ×3 (02:42→16:07)
[2016-12-21 06:10] LABS: HEMATOCRIT 23.3 % (37-47)
[2016-12-21 06:45] LABS: BUN/CREATININE RATIO 7.3 (10-20); CALCIUM 7.8 mg/dl (8.5-10.1); CREATININE 0.48 mg/dl (0.60-1.20)
[2016-12-21] MEDS: BuPROPion XL 150 MG TABCR PO SCH (08:56)
[2016-12-21] MEDS: NICOTINE 14 MG/24 HR TDSY TD SCH (09:20)
--- NOTE | 2016-12-21 09:49 | Progress Note ---
Medicine Progress Note Date & Time of Visit: Dec 21, 2016 at 09:44. Subjective patient seen sitting up in bed , comfortable states she feels improved today than yesterday no recurrence of rectal bleed tolerating clears, no abdominal pain denies chest pain, dyspnea no other symptom Objective Last 8 Hrs Date Time Temp Pulse Resp B/P (MAP) Pulse Ox O2 Delivery O2 Flow Rate FiO2 12/21/16 07:23 36.9 66 17 97/55 (69) 91 Room Air 12/21/16 04:00 92 Room Air 12/21/16 03:48 36.6 75 17 92/55 (67) 92 Room Air Physical Exam: General- oriented x 3, not in distress, speaks in sentences with no effort Eyes- anicteric Neck- no JVD Lungs- clear breath sounds bilaterally Heart- regular rhythm; no murmur, normal rate Abdomen- normal bowel sounds, soft, nontender, non distended Extremities- no pretibial edema, no calf tenderness; peripheral pulses intact Neuro- alert, oriented x 3; no gross focal deficits Skin- warm & dry Laboratory Results: Last 24 Hours Test 12/20/16 12:07 12/20/16 18:11 12/21/16 00:14 12/21/16 05:52 Hemoglobin 8.4 g/dL 8.0 g/dL 7.9 g/dL 7.6 g/dL Hematocrit 26.1 % 24.6 % 23.0 % 23.3 % Sodium Level 145 mmol/L Potassium Level 3.0 mmol/L Chloride Level 116 mmol/L Carbon Dioxide Level 22 mmol/L Anion Gap 7.0 mmol/L Blood Urea Nitrogen 4 mg/dl Creatinine 0.48 mg/dl Est Creatinine Clear Calc Drug Dose 125.4 ml/min Estimated GFR () 128.0 Estimated GFR (Non- 110.4 BUN/Creatinine Ratio 7.3 Random Glucose 102 mg/dl Calcium Level 7.8 mg/dl Assessment & Plan 56 year old female with history of Smoking, Asthma, Alcoholism, Depression presenting with rectal bleeding. RECTAL BLEEDING RECENT COLONOSCOPY, WITH POLYPECTOMY 12/17/16 - Hg dropped to 7.7 had a syncopal episode 12/20/16 prior to Colonoscopy - 1 unit of PRBC ordered Hg increased to 8.4 - s/p Colonoscopy Impression: - Blood in the entire examined colon. - Post-polypectomy bleeding from the descending colon. Injected. Clips (MR conditional) were placed. Ligated. Treated with bipolar cautery. Tattooed. - No specimens collected. Recommendation: - [facility] patient to [facility] care. - Clear liquid diet today. - If rebleeding occurs would refer for angiography. - No NSAIDS for 1 week -- H&H decreased to 7.6 today asymptomatic check ortho VS, if with dizziness, will order 1 unit of pRBC repeat H&H at 12 noon -- advance diet per GI no NSAIDs for 1 week HYPOKALEMIA - PO K ordered - monitor SMOKER - Nicotine patch counselled on cessation ALCOHOLISM - last drink 2 months ago DEPRESSION - Welbutrin ASTHMA - stable DVT prophylaxis - SCDs - ambulate if no orthostasis, dizzines Full Code Disposition pending anticipate d/c home when medically stable ff up with Dr. Osorio for PCP Dr. Bates for GI Current Inpatient Medications: Current Inpatient Medications Medications (Trade) Dose Ordered Sig/Karo Route Start Time Stop Time Status Last Admin Dose Admin Ioversol (Optiray 320) 116 ml UD PRN IV 12/19/16 18:15 12/23/16 18:14 Dextrose/Sodium Chloride 1,000 ml @ 80 mls/hr [id number] IV 12/19/16 20:15 01/18/17 20:14 12/21/16 08:56 80 MLS/HR Bupropion HCl (Wellbutrin-Xl Tab) 150 mg QAM PO 12/20/16 09:00 01/19/17 08:59 12/21/16 08:56 150 MG Nicotine (Nicoderm Cq 14MG Patch) 1 patch QAM TD 12/20/16 09:00 01/19/17 08:59 12/21/16 09:20 1 PATCH Miscellaneous (Remove Nicoderm Patch) 1 ea HS N/A 12/19/16 21:00 01/18/17 20:59 12/20/16 21:00 1 EA Miscellaneous (Iv Fluids Completed) 1 ea PRN PRN N/A 12/19/16 20:30 12/19/17 20:29 Acetaminophen (Tylenol Tab) 650 mg Q4H PRN PO 12/19/16 20:45 01/18/17 20:44 Ondansetron HCl (Zofran Inj) 4 mg Q6H PRN IV 12/19/16 20:45 01/18/17 20:44 Acetaminophen 650 mg/Empty Bag 65 ml @ 260 mls/hr Q6H PRN IV 12/20/16 16:00 01/19/17 15:59 Tramadol HCl (Ultram Tab) 50 mg Q6H PRN PO 12/20/16 16:00 01/19/17 15:59 12/20/16 16:21 50 MG Miscellaneous (Iv Fluids Completed) 1 ea PRN PRN N/A 12/20/16 18:15 12/20/17 18:14 Potassium Chloride (Klor-Con M10) 40 meq 1000 ONCE PO 12/21/16 10:00 12/21/16 10:01
[2016-12-21] MEDS ORDERED: POTASSIUM CHLORIDE 10 MEQ TABCR PO ONE ×2 (10:00→17:30)
[2016-12-21 13:14] LABS: HEMATOCRIT 27.5 % (37-47)
--- NOTE | 2016-12-21 15:03 | Gastroenterology Progress Note ---
Progress Note Date of Service: Dec 21, 2016 Subjective Pt evaluation today including: conversation w/ patient, physical exam, chart review, lab review 56yo being followed for post polypectomy bleed s/p colonoscopy yesterday, large vessel >7mm noted. Pt feeling much better today, only one bloody BM overnight. Hgb improved from 7.6 up to 8.7. Has only required 1u PRBC this far. no new GI c/o today, tolerating clear liquids. Impression: - Blood in the entire examined colon. - Post-polypectomy bleeding from the descending colon. Injected. Clips (MR conditional) were placed. Ligated. Treated with bipolar cautery. Tattooed. - No specimens collected. Recommendation: - [facility] to [facility]. - Clear liquid diet today. - If rebleeding occurs would refer for angiography. - No NSAIDS for 1 week Review of Systems Constitutional: No fever, No chills Respiratory: No shortness of breath Cardiac: No chest pain Abdomen: + see HPI (feeling improved) Musculoskeletal: No problem reported Neuro: + problem reported (no further syncopal events) Medications Current Inpatient Medications Medications (Trade) Dose Ordered Sig/Karo Route Start Time Stop Time Status Last Admin Dose Admin Ioversol (Optiray 320) 116 ml UD PRN IV 12/19/16 18:15 12/23/16 18:14 Dextrose/Sodium Chloride 1,000 ml @ 80 mls/hr [id number] IV 12/19/16 20:15 01/18/17 20:14 12/21/16 08:56 80 MLS/HR Bupropion HCl (Wellbutrin-Xl Tab) 150 mg QAM PO 12/20/16 09:00 01/19/17 08:59 12/21/16 08:56 150 MG Nicotine (Nicoderm Cq 14MG Patch) 1 patch QAM TD 12/20/16 09:00 01/19/17 08:59 12/21/16 09:20 1 PATCH Miscellaneous (Remove Nicoderm Patch) 1 ea HS N/A 12/19/16 21:00 01/18/17 20:59 12/20/16 21:00 1 EA Miscellaneous (Iv Fluids Completed) 1 ea PRN PRN N/A 12/19/16 20:30 12/19/17 20:29 Acetaminophen (Tylenol Tab) 650 mg Q4H PRN PO 12/19/16 20:45 01/18/17 20:44 Ondansetron HCl (Zofran Inj) 4 mg Q6H PRN IV 12/19/16 20:45 01/18/17 20:44 Acetaminophen 650 mg/Empty Bag 65 ml @ 260 mls/hr Q6H PRN IV 12/20/16 16:00 01/19/17 15:59 Tramadol HCl (Ultram Tab) 50 mg Q6H PRN PO 12/20/16 16:00 01/19/17 15:59 12/20/16 16:21 50 MG Miscellaneous (Iv Fluids Completed) 1 ea PRN PRN N/A 12/20/16 18:15 12/20/17 18:14 Objective Vital Signs Date Time Temp Pulse Resp B/P (MAP) Pulse Ox O2 Delivery O2 Flow Rate FiO2 12/21/16 12:00 Room Air 12/21/16 11:37 37.2 72 17 92/58 (69) 93 Room Air 12/21/16 08:00 Room Air 12/21/16 07:23 36.9 66 17 97/55 (69) 91 Room Air 12/21/16 04:00 92 Room Air 12/21/16 03:48 36.6 75 17 92/55 (67) 92 Room Air 12/21/16 00:00 94 Room Air 12/20/16 23:53 36.6 74 17 94/58 (70) 94 Room Air 12/20/16 21:05 72 96/60 (72) 12/20/16 20:00 Room Air 12/20/16 19:45 37.1 77 22 82/42 (55) 92 Room Air 12/20/16 16:00 Room Air 12/20/16 16:00 56 16 102/54 (70) 95 Room Air 12/20/16 14:39 62 22 119/67 (84) 94 Room Air 12/20/16 14:24 62 22 107/60 (76) 94 Room Air 12/20/16 14:19 68 28 105/51 (69) 100 Room Air Physical Exam General Appearance: WD/WN, no apparent distress (looking better than yesterday) Eyes: PERRL ENT: hearing grossly normal Respiratory/Chest: no respiratory distress, no accessory muscle use Cardiovascular: regular rate, rhythm Abdomen: non tender, soft Neurologic/Psych: alert, normal mood/affect, oriented x 3 Laboratory Results Last 24 Hours Test 12/20/16 18:11 12/21/16 00:14 12/21/16 05:52 12/21/16 12:28 Hemoglobin 8.0 g/dL 7.9 g/dL 7.6 g/dL 8.7 g/dL Hematocrit 24.6 % 23.0 % 23.3 % 27.5 % Sodium Level 145 mmol/L Potassium Level 3.0 mmol/L Chloride Level 116 mmol/L Carbon Dioxide Level 22 mmol/L Anion Gap 7.0 mmol/L Blood Urea Nitrogen 4 mg/dl Creatinine 0.48 mg/dl Est Creatinine Clear Calc Drug Dose 125.4 ml/min Estimated GFR () 128.0 Estimated GFR (Non- 110.4 BUN/Creatinine Ratio 7.3 Random Glucose 102 mg/dl Calcium Level 7.8 mg/dl Assessment and Plan 56yo with post polypectomy bleeding s/p colonoscopy yesterday as above hgb improving without need for further transfusion ok to advance diet to full liquids if hgb stable, no further bleeding, consider d/c tomorrow if rebleeding occurs - needs transfer to tertiary center as previously noted. I saw and evaluated the patient. It appears that she has not had recurrent bleeding at this time. I would suggest that we continue to watch her for evidence of recurrent bleeding for at least another 24 hours. If rebleeding occurs she would then need to be referred to a tertiary center with interventional radiology support. Recommendations Advance diet to full liquids today If no evidence of rebleeding overnight pateint may be discharged on Tuesday
[2016-12-22] VITALS: BP 111/68; PULSE 91; TEMP 37; O2SAT 98
[2016-12-22] MEDS: D5W AND NSS 1,000 ML IV SCH (03:54)
[2016-12-22 04:00] VITALS: BP 101/64; PULSE 72; TEMP 36.7; O2SAT 94
[2016-12-22 06:52] LABS: HEMATOCRIT 24.9 % (37-47); MEAN CELL VOLUME 92.9 fL (80-100); MEAN CORPUSCULAR HEMOGLOBIN 30.6 pg (25-34); MEAN CORPUSCULAR HGB CONC 32.9 g/dl (32-36); MEAN PLATELET VOLUME 11.5 fL (7.4-10.4); PLATELET COUNT 233 K/uL (130-400); RED BLOOD COUNT 2.68 M/uL (4.2-5.4); WHITE BLOOD COUNT 12.47 K/uL (4.8-10.8)
[2016-12-22 07:22] LABS: BASO ABS # 0.12 K/uL (0-0.2); COMPLETE YES; EOS % 7.1 %; HOWELL-JOLLY BODIES 1+; IG% 0.3 %; LYMPH % 22.7 %; LYMPH ABS # 2.83 K/uL (1.2-3.4); MONO % 16.4 %; NEUT % 52.5 %
[2016-12-22 07:24] LABS: BLOOD UREA NITROGEN < 1 mg/dl (7-18); CREATININE 0.51 mg/dl (0.60-1.20); GLUCOSE 84 mg/dl (70-99)
[2016-12-22 07:25] VITALS: BP 109/69; PULSE 63; TEMP 36.8; O2SAT 93
[2016-12-22 07:25] LABS: CALCIUM 8.4 mg/dl (8.5-10.1); CARBON DIOXIDE 25 mmol/L (21-32); CHLORIDE 117 mmol/L (98-107); MAGNESIUM 1.6 mg/dl (1.8-2.4); POTASSIUM 3.6 mmol/L (3.5-5.1); SODIUM 147 mmol/L (136-145)
[2016-12-22] MEDS: BuPROPion XL 150 MG TABCR PO SCH (08:00)
[2016-12-22] MEDS: NICOTINE 14 MG/24 HR TDSY TD SCH (08:01)
[2016-12-22 09:49] VITALS: BP 109/69; PULSE 63; TEMP 36.8; O2SAT 93
[2016-12-22] MEDS ORDERED: MAGNESIUM OXIDE 400 MG TAB PO ONE (10:27)
--- NOTE | 2016-12-22 10:35 | Gastroenterology Progress Note ---
Progress Note Date of Service: Dec 22, 2016 Subjective Pt evaluation today including: conversation w/ patient Pt was seen and evaluated this AM. Is having normal BMs, no bleeding x 2 days. She wants to be discharged. HGB stable. Review of Systems Constitutional: No fever Respiratory: No cough Cardiac: No chest pain Abdomen: No pain, No diarrhea, No GI bleeding Medications Current Inpatient Medications Medications (Trade) Dose Ordered Sig/Karo Route Start Time Stop Time Status Last Admin Dose Admin Ioversol (Optiray 320) 116 ml UD PRN IV 12/19/16 18:15 12/23/16 18:14 Dextrose/Sodium Chloride 1,000 ml @ 80 mls/hr [id number] IV 12/19/16 20:15 01/18/17 20:14 12/22/16 03:54 80 MLS/HR Bupropion HCl (Wellbutrin-Xl Tab) 150 mg QAM PO 12/20/16 09:00 01/19/17 08:59 12/22/16 08:00 150 MG Nicotine (Nicoderm Cq 14MG Patch) 1 patch QAM TD 12/20/16 09:00 01/19/17 08:59 12/22/16 08:01 1 PATCH Miscellaneous (Remove Nicoderm Patch) 1 ea HS N/A 12/19/16 21:00 01/18/17 20:59 12/21/16 21:18 1 EA Miscellaneous (Iv Fluids Completed) 1 ea PRN PRN N/A 12/19/16 20:30 12/19/17 20:29 Acetaminophen (Tylenol Tab) 650 mg Q4H PRN PO 12/19/16 20:45 01/18/17 20:44 Ondansetron HCl (Zofran Inj) 4 mg Q6H PRN IV 12/19/16 20:45 01/18/17 20:44 Acetaminophen 650 mg/Empty Bag 65 ml @ 260 mls/hr Q6H PRN IV 12/20/16 16:00 01/19/17 15:59 Tramadol HCl (Ultram Tab) 50 mg Q6H PRN PO 12/20/16 16:00 01/19/17 15:59 12/20/16 16:21 50 MG Miscellaneous (Iv Fluids Completed) 1 ea PRN PRN N/A 12/20/16 18:15 12/20/17 18:14 Magnesium Oxide (Mag-Ox Tab) 400 mg BID PO 12/22/16 21:00 01/21/17 20:59 Objective Vital Signs Date Time Temp Pulse Resp B/P (MAP) Pulse Ox O2 Delivery O2 Flow Rate FiO2 12/22/16 07:25 36.8 63 18 109/69 (82) 93 Room Air 12/22/16 04:00 Room Air 12/22/16 04:00 36.7 72 17 101/64 (76) 94 Room Air 12/22/16 00:00 37.0 91 17 111/68 (82) 98 Room Air 12/21/16 23:27 Room Air 12/21/16 20:00 Room Air 12/21/16 19:00 36.9 79 20 111/72 (85) 94 Room Air 12/21/16 17:54 77 119/71 (87) 12/21/16 17:53 75 124/72 (89) 12/21/16 17:53 82 111/74 (86) 12/21/16 16:13 36.8 72 20 103/62 (76) 93 Room Air 12/21/16 16:00 Room Air 12/21/16 12:00 Room Air 12/21/16 11:37 37.2 72 17 92/58 (69) 93 Room Air Physical Exam General Appearance: no apparent distress Eyes: PERRL ENT: hearing grossly normal Respiratory/Chest: lungs clear Cardiovascular: regular rate, rhythm Abdomen: non tender, soft Neurologic/Psych: alert, normal mood/affect, oriented x 3 Laboratory Results Last 24 Hours Test 12/21/16 12:28 12/21/16 15:44 12/22/16 06:34 Hemoglobin 8.7 g/dL 8.2 g/dL Hematocrit 27.5 % 24.9 % Potassium Level 3.2 mmol/L 3.6 mmol/L White Blood Count 12.47 K/uL Red Blood Count 2.68 M/uL Mean Corpuscular Volume 92.9 fL Mean Corpuscular Hemoglobin 30.6 pg Mean Corpuscular Hemoglobin Concent 32.9 g/dl Platelet Count 233 K/uL Mean Platelet Volume 11.5 fL Neutrophils (%) (Auto) 52.5 % Lymphocytes (%) (Auto) 22.7 % Monocytes (%) (Auto) 16.4 % Eosinophils (%) (Auto) 7.1 % Basophils (%) (Auto) 1.0 % Neutrophils # (Auto) 6.55 K/uL Lymphocytes # (Auto) 2.83 K/uL Monocytes # (Auto) 2.04 K/uL Eosinophils # (Auto) 0.89 K/uL Basophils # (Auto) 0.12 K/uL RDW Standard Deviation 49.7 fL RDW Coefficient of Variation 14.5 % Immature Granulocyte % (Auto) 0.3 % Immature Granulocyte # (Auto) 0.04 K/uL Hypogranular Neutrophils 1+ [place] Bodies 1+ Sodium Level 147 mmol/L Chloride Level 117 mmol/L Carbon Dioxide Level 25 mmol/L Anion Gap 5.0 mmol/L Blood Urea Nitrogen < 1 mg/dl Creatinine 0.51 mg/dl Est Creatinine Clear Calc Drug Dose 118.0 ml/min Estimated GFR () 125.5 Estimated GFR (Non- 108.3 BUN/Creatinine Ratio Random Glucose 84 mg/dl Calcium Level 8.4 mg/dl Magnesium Level 1.6 mg/dl Assessment and Plan 56yo with post polypectomy bleeding s/p colonoscopy 12/20/16 - Trend H&H while admitted - Assess bleeding - Full liquid, low fiber diet - Transfer to tertiary care center if bleeding occurs for IR GI to sign off. Call with questions. Patient discharged prior to afternoon rounds.
[2016-12-22 11:10] VITALS: BP 115/70; PULSE 72; TEMP 36.7; O2SAT 99
--- NOTE | 2016-12-22 11:20 | Progress Note ---
Medicine Progress Note Date & Time of Visit: Dec 22, 2016 at 11:16. Subjective patient seen resting in bed, comfortable in good spirits had BM, no hematochezia/melena no abdominal pain denies dizziness, chest pain, dyspnea, palpitations denies other symptoms states she is ready and would like to be discharged today Objective Last 8 Hrs Date Time Temp Pulse Resp B/P (MAP) Pulse Ox O2 Delivery O2 Flow Rate FiO2 12/22/16 11:10 36.7 72 18 115/70 (85) 99 Room Air 12/22/16 08:00 Room Air 12/22/16 07:25 36.8 63 18 109/69 (82) 93 Room Air 12/22/16 04:00 Room Air 12/22/16 04:00 36.7 72 17 101/64 (76) 94 Room Air Physical Exam: General- oriented x 3, not in distress, speaks in sentences with no effort Eyes- anicteric Neck- no JVD Lungs- clear breath sounds bilaterally, no rales/no wheezing Heart- regular rhythm; no murmur, normal rate Abdomen- normal bowel sounds, soft, nontender, non distended Extremities- no pretibial edema, no calf tenderness Neuro- alert, oriented x 3; no gross focal deficits Skin- warm & dry Laboratory Results: Last 24 Hours Test 12/21/16 12:28 12/21/16 15:44 12/22/16 06:34 Hemoglobin 8.7 g/dL 8.2 g/dL Hematocrit 27.5 % 24.9 % Potassium Level 3.2 mmol/L 3.6 mmol/L White Blood Count 12.47 K/uL Red Blood Count 2.68 M/uL Mean Corpuscular Volume 92.9 fL Mean Corpuscular Hemoglobin 30.6 pg Mean Corpuscular Hemoglobin Concent 32.9 g/dl Platelet Count 233 K/uL Mean Platelet Volume 11.5 fL Neutrophils (%) (Auto) 52.5 % Lymphocytes (%) (Auto) 22.7 % Monocytes (%) (Auto) 16.4 % Eosinophils (%) (Auto) 7.1 % Basophils (%) (Auto) 1.0 % Neutrophils # (Auto) 6.55 K/uL Lymphocytes # (Auto) 2.83 K/uL Monocytes # (Auto) 2.04 K/uL Eosinophils # (Auto) 0.89 K/uL Basophils # (Auto) 0.12 K/uL RDW Standard Deviation 49.7 fL RDW Coefficient of Variation 14.5 % Immature Granulocyte % (Auto) 0.3 % Immature Granulocyte # (Auto) 0.04 K/uL Hypogranular Neutrophils 1+ [place] Bodies 1+ Sodium Level 147 mmol/L Chloride Level 117 mmol/L Carbon Dioxide Level 25 mmol/L Anion Gap 5.0 mmol/L Blood Urea Nitrogen < 1 mg/dl Creatinine 0.51 mg/dl Est Creatinine Clear Calc Drug Dose 118.0 ml/min Estimated GFR () 125.5 Estimated GFR (Non- 108.3 BUN/Creatinine Ratio Random Glucose 84 mg/dl Calcium Level 8.4 mg/dl Magnesium Level 1.6 mg/dl Assessment & Plan 56 year old female with history of Smoking, Asthma, Alcoholism, Depression presenting with rectal bleeding. RECTAL BLEEDING RECENT COLONOSCOPY, WITH POLYPECTOMY 12/17/16 - Hg dropped from 14 to 7.7 had a syncopal episode 12/20/16 prior to Colonoscopy - 1 unit of PRBC ordered Hg increased to 8.4 - s/p Colonoscopy Impression: - Blood in the entire examined colon. - Post-polypectomy bleeding from the descending colon. Injected. Clips (MR conditional) were placed. Ligated. Treated with bipolar cautery. Tattooed. - No specimens collected. Recommendation: - [facility]. - If rebleeding occurs would refer for angiography. - No NSAIDS for 1 week -- Hg remained stable ~8 denies symptoms -- low fiber diet no NSAIDs for 1 week repeat H&H on follow up with PCP in 1 week follow up with GI in 2-3 weeks HYPOKALEMIA - PO K ordered - resolved HYPOMAGNESEMIA - Mg 1.7 - oral Mg ordered - repeat on ff up with PCP SMOKER - Nicotine patch counselled on cessation ALCOHOLISM - last drink 2 months ago DEPRESSION - stable - on Welbutrin ASTHMA - stable DVT prophylaxis - SCDs - ambulate Full Code Disposition d/chome ff up with Dr. Osorio 1 week GI- Dr. Bates 2-3 weeks Current Inpatient Medications: Current Inpatient Medications Medications (Trade) Dose Ordered Sig/Karo Route Start Time Stop Time Status Last Admin Dose Admin Ioversol (Optiray 320) 116 ml UD PRN IV 12/19/16 18:15 12/23/16 18:14 Dextrose/Sodium Chloride 1,000 ml @ 80 mls/hr [id number] IV 12/19/16 20:15 01/18/17 20:14 12/22/16 03:54 80 MLS/HR Bupropion HCl (Wellbutrin-Xl Tab) 150 mg QAM PO 12/20/16 09:00 01/19/17 08:59 12/22/16 08:00 150 MG Nicotine (Nicoderm Cq 14MG Patch) 1 patch QAM TD 12/20/16 09:00 01/19/17 08:59 12/22/16 08:01 1 PATCH Miscellaneous (Remove Nicoderm Patch) 1 ea HS N/A 12/19/16 21:00 01/18/17 20:59 12/21/16 21:18 1 EA Miscellaneous (Iv Fluids Completed) 1 ea PRN PRN N/A 12/19/16 20:30 12/19/17 20:29 Acetaminophen (Tylenol Tab) 650 mg Q4H PRN PO 12/19/16 20:45 01/18/17 20:44 Ondansetron HCl (Zofran Inj) 4 mg Q6H PRN IV 12/19/16 20:45 01/18/17 20:44 Acetaminophen 650 mg/Empty Bag 65 ml @ 260 mls/hr Q6H PRN IV 12/20/16 16:00 01/19/17 15:59 Tramadol HCl (Ultram Tab) 50 mg Q6H PRN PO 12/20/16 16:00 01/19/17 15:59 12/20/16 16:21 50 MG Miscellaneous (Iv Fluids Completed) 1 ea PRN PRN N/A 12/20/16 18:15 12/20/17 18:14 Magnesium Oxide (Mag-Ox Tab) 400 mg BID PO 12/22/16 21:00 01/21/17 20:59
[2016-12-22] MEDS ORDERED: BUPRTAB51 PO (11:25)
[2016-12-22] MEDS ORDERED: MGNO400 PO (11:25)
--- NOTE | 2016-12-22 11:36 | Discharge Instructions ---
Discharge Instructions Date of Service Dec 22, 2016. Admission Reason for Admission: Rectal Bleeding Discharge Discharge Diagnosis / Problem: RECTAL BLEEDING Discharge Goals Goal(s): Diagnostic testing, Therapeutic intervention Activity Recommendations Activity Limitations: as noted below (NO HEAVY EXERTION UNTIL RE-EVALAUTED BY PRIMARY CARE PHYSICIAN) Lifting Limitations: until after follow-up appointment Exercise/Sports Limitations: until after follow-up appointment . Instructions / Follow-Up Instructions / Follow-Up MAINTAIN LOW FIBER DIET FOR AT LEAST 1 WEEK. NO ASPIRIN, IBUPROFEN, NAPROXEN FOR 1 WEEK. CALL PRIMARY CARE PHYSICIAN OR RETURN TO ER IMMEDIATELY IF WITH RECURRENCE OF RECTAL BLEEDING, BLACK STOOLS, DIZZINESS/LIGHTHEADEDNESS, WEAKNESS, CHEST PAIN, SHORTNESS OF BREATH. FOLLOW UP WITH PRIMARY CARE PHYSICIAN DR. OLSON AT THE [facility] ON TUESDAY DECEMBER 27, 2016 AT 12:45AM. FOLLOW UP WITH AMUSEMENT RIDE OPERATOR DR. CASTILLO IN 2-3 WEEKS. Current Hospital Diet Patient's current hospital diet: Full Liquid Diet Discharge Diet Recommended Diet: Low Fiber Diet Procedures Procedures Performed: COLONOSCOPY, HEMOSTASIS Pending Studies Studies pending at discharge: yes List of pending studies: REPEAT BLOOD WORK C/O PRIMARY CARE PHYSICIAN ON FOLLOW UP VISIT Medical Emergencies . Who to Call and When: Medical Emergencies: If at any time you feel your situation is an emergency, please call 911 immediately. . Non-Emergent Contact Non-Emergency issues call your: Primary Care Provider Call Non-Emergent contact if: you have a fever, your pain is not controlled, your pain is worsening, you have any medication questions . . "Provider Documentation" section prepared by Gonsalo Sharma. . VTE Core Measure Inpt VTE Proph given/why not?: SCD's
--- NOTE | 2016-12-22 11:43 | Discharge Summary ---
Discharge Summary Date of Service Dec 22, 2016. Discharge Summary Admission Date: Dec 20, 2016 at 17:59 Discharge Date: Dec 22, 2016 Principal Diagnosis: RECTAL BLEEDING; COLONOSCOPY, WITH POLYPECTOMY 12/17/16 Secondary Diagnoses/Problems: PLEASE REFER TO HOSPITAL COURSE BELOW. Procedures: COLONOSCOPY: 12/20/[address] Bates The perianal and digital rectal examinations were normal. Pertinent negatives include normal sphincter tone. Clotted blood was found in the entire colon. A bleeding polyp stalk was found in the descending colon at a prior polypectomy site. The polyp stalk was enlongated and contained a very large diameter blood vessel (> 7 mm). The area was successfully injected with 2 mL of a 1:10,000 solution of epinephrine for hemostasis. To stop active bleeding, three hemostatic clips were successfully placed (MR conditional) at the base of the polyp stalk. As the vessel could still be visualized, one ligature was successfully placed. For additional hemostasis, two more hemostatic clips were successfully placed (MR conditional) on the back side of the polyp stalk. Coagulation for hemostasis using a 10 Fr multipolar silver probe at the visible vessel was successful. Area was tattooed with an injection of 2 mL of Spot (carbon black). Impression: - Blood in the entire examined colon. - Post-polypectomy bleeding from the descending colon. Injected. Clips (MR conditional) were placed. Ligated. Treated with bipolar cautery. Tattooed. - No specimens collected. Recommendation: - [facility] patient to [facility] for [facility] care. - Clear liquid diet today. - If rebleeding occurs would refer for angiography. - No NSAIDS for 1 week ABD/PELVIS IV AND ORAL CONT CT DOSE: 355.41 mGy.cm HISTORY: Pain Colonoscopy on Tuesday, rectal bleeding. TECHNIQUE: Multiaxial CT images of the abdomen and pelvis were performed following the use of intravenous and oral contrast. A dose lowering technique was utilized adhering to the principles of ALARA. COMPARISON STUDY: None. FINDINGS: Lung bases are considered clear. Mild fatty replacement of the liver. Several small gallstones within the gallbladder lumen. Pancreas is unremarkable. Mild cortical scarring of the kidneys. Several small subcentimeter renal cortical cysts. Mild hyperplastic change of the adrenals. Nonobstructive bowel pattern. Normal appendix. No evidence for free air or pneumatosis. Bladder is midline. Probable calcifications of a fibroid uterus. IMPRESSION: 1. Several small gallstones. 2. Several small renal cysts. 3. Fibroid uterus. 4. Nonobstructive unremarkable bowel pattern. Consultations: [employer] DR. BATES Pending Studies/Follow-Up: PLEASE REFER TO HOSPITAL COURSE BELOW. Medication Reconciliation New Medications: Magnesium Oxide (Magnesium-Oxide) 400 Mg Tab 400 MG PO BID for 5 Days, #10 TAB 0 Refills Changed Medications: Bupropion (Wellbutrin-Xl) 300 Mg Tabcr 150 MG PO QAM for 30 Days (Changed from: 300 MG) Continued Medications: Ascorbic Acid (Vitamin C) 1,000 Mg Tab 1 TAB PO QAM Fexofenadine-Pseudoephedrine (Lucia-D 12 Hour Allergy) 1 Tab Tab 1 TAB PO QAM Admission Information HPI (per Admitting provider): 56 year old female with history of Smoking, Asthma, Alcoholism, Depression presenting with rectal bleeding. Follows with Dr. Osorio for PCP and Dr. Rivera for GI. Patient underwent screening colonoscopy last Tuesday, with 2 polyps removed. She was doing fine until this morning when she started to notice blood mixed with her stools- fills the bowl each time. No pain with BM. Around 9 times today. No abdominal pain, has occasional nausea. No chest pain, dyspnea, palpitations, dizziness. She called GI and was advised by Dr. Bates to proceed to the ER, and a colonoscopy will be done in AM. Patient arrived at the ER with stable VS. Hg 14. CT abdomen: (+) gallstones, fibroid uterus. On exam, patient seen resting in bed, comfortable. States she feels ok overall. Had 2 episodes of hematochezia. No other active symptoms. Physical Exam (per Admitting): General Appearance: WD/WN, no apparent distress Head: normocephalic, atraumatic Eyes: normal inspection, PERRL, sclerae normal ENT: normal ENT inspection, hearing grossly normal, pharynx normal Neck: supple, no adenopathy, thyroid normal, no JVD, no carotid bruits Respiratory/Chest: chest non-tender, lungs clear, normal breath sounds, no respiratory distress, no accessory muscle use Cardiovascular: regular rate, rhythm, no edema, no JVD, no murmur Abdomen/GI: normal bowel sounds, non tender, soft Back: normal inspection, no CVA tenderness Extremities/Musculoskelatal: normal inspection, no calf tenderness, no pedal edema, normal range of motion Neurologic/Psych: papier mache molder II-XII nml as tested, no motor/sensory deficits, alert , normal mood/affect, oriented x 3 Skin: normal color, warm/dry, no rash Lymphatic: no adenopathy Hospital Course 56 year old female with history of Smoking, Asthma, Alcoholism, Depression presenting with rectal bleeding. RECTAL BLEEDING RECENT COLONOSCOPY, WITH POLYPECTOMY 12/17/16 - Hg dropped from 14 to 7.7 had a syncopal episode 12/20/16 prior to repeat Colonoscopy - 1 unit of PRBC ordered Hg increased to 8.4 - s/p Colonoscopy Impression: - Blood in the entire examined colon. - Post-polypectomy bleeding from the descending colon. Injected. Clips (MR conditional) were placed. Ligated. Treated with bipolar cautery. Tattooed. - No specimens collected. Recommendation: - [facility] to [facility]. - If rebleeding occurs would refer for angiography. - No NSAIDS for 1 week -- Hg remained stable ~8 denies symptoms -- low fiber diet no NSAIDs for 1 week repeat H&H on follow up with PCP in 1 week follow up with GI in 2-3 weeks HYPOKALEMIA - PO K ordered - resolved HYPOMAGNESEMIA - Mg 1.7 - oral Mg ordered - repeat on ff up with PCP ABNORMAL CT SCAN FINDINGS - Fatty liver, Gallstones, Fibroid Uterus, Renal Cysts, Hyperplastic Adrenals - please refer to full report above at the Procedure Section - follow up as outpatient SMOKER - Nicotine patch counselled on cessation ALCOHOLISM - last drink 2 months ago DEPRESSION - stable - on Welbutrin ASTHMA - stable Disposition d/chome ff up with PCP in 1 week GI- Dr. Bates 2-3 weeks Total time spent on discharge = 35 minutes This includes examination of the patient, discharge planning, medication reconciliation, and communication with other providers. Discharge Instructions Discharge Instructions Date of Service Dec 22, 2016. Admission Reason for Admission: Rectal Bleeding Discharge Discharge Diagnosis / Problem: RECTAL BLEEDING Discharge Goals Goal(s): Diagnostic testing, Therapeutic intervention Activity Recommendations Activity Limitations: as noted below (NO HEAVY EXERTION UNTIL RE-EVALAUTED BY PRIMARY CARE PHYSICIAN) Lifting Limitations: until after follow-up appointment Exercise/Sports Limitations: until after follow-up appointment . Instructions / Follow-Up Instructions / Follow-Up MAINTAIN LOW FIBER DIET FOR AT LEAST 1 WEEK. NO ASPIRIN, IBUPROFEN, NAPROXEN FOR 1 WEEK. CALL PRIMARY CARE PHYSICIAN OR RETURN TO ER IMMEDIATELY IF WITH RECURRENCE OF RECTAL BLEEDING, BLACK STOOLS, DIZZINESS/LIGHTHEADEDNESS, WEAKNESS, CHEST PAIN, SHORTNESS OF BREATH. FOLLOW UP WITH PRIMARY CARE PHYSICIAN DR. OLSON AT THE [facility] ON TUESDAY DECEMBER 27, 2016 AT 12:45AM. FOLLOW UP WITH [employer]ER DR. BATES IN 2-3 WEEKS. Current Hospital Diet Patient's current hospital diet: Full Liquid Diet Discharge Diet Recommended Diet: Low Fiber Diet Procedures Procedures Performed: COLONOSCOPY, HEMOSTASIS Pending Studies Studies pending at discharge: yes List of pending studies: REPEAT BLOOD WORK C/O PRIMARY CARE PHYSICIAN ON FOLLOW UP VISIT Medical Emergencies . Who to Call and When: Medical Emergencies: If at any time you feel your situation is an emergency, please call 911 immediately. . Non-Emergent Contact Non-Emergency issues call your: Primary Care Provider Call Non-Emergent contact if: you have a fever, your pain is not controlled, your pain is worsening, you have any medication questions . . "Provider Documentation" section prepared by Gonsalo Sharma. . VTE Core Measure Inpt VTE Proph given/why not?: SCD's
[2016-12-22 11:44] VITALS: BP 115/70; PULSE 72; TEMP 36.7; O2SAT 99
[2016-12-22] MEDS ORDERED: MAGNESIUM OXIDE 400 MG TAB PO SCH (21:00)
== END 2016-12-22 13:00 | disposition home or self-care (01) | DRG 920 ==
LOC: C.EDB 15:18 → C.2T 20:08 → ENRESERV 20:23 → OBSVTOIN 12-20 17:59
PROVIDERS: ADMIT Internal Medicine; ATTEND Internal Medicine
PROC: 0W3P8ZZ Control Bleeding in Gastrointestinal Tract, Via Natural or Artificial Opening Endoscopic (ICD-10-PCS; principal; 2016-12-20 12:46)
DX: K91.840 Postprocedural hemorrhage of a digestive system organ or structure following a digestive system procedure (principal); K62.5 Hemorrhage of anus and rectum; F17.200 Nicotine dependence, unspecified, uncomplicated; J45.909 Unspecified asthma, uncomplicated; F10.20 Alcohol dependence, uncomplicated; Z88.0 Allergy status to penicillin; E87.6 Hypokalemia; E83.42 Hypomagnesemia; F32.9 Major depressive disorder, single episode, unspecified; Y83.8 Other surgical procedures as the cause of abnormal reaction of the patient, or of later complication, without mention of misadventure at the time of the procedure; Y92.009 Unspecified place in unspecified non-institutional (private) residence as the place of occurrence of the external cause